=== PATIENT | male | born 1985 | race African-American/Black ===

== ENCOUNTER 2017-04-03 12:56 | Emergency (ER) | payer OTHER | END 2017-04-03 13:53 | disposition home or self-care (01) | LOC: ER 12:56 | DX: S93.402A Sprain of unspecified ligament of left ankle, initial encounter (principal); W22.8XXA Striking against or struck by other objects, initial encounter; Y93.89 Activity, other specified; Y92.89 Other specified places as the place of occurrence of the external cause; Y99.8 Other external cause status | CPT/HCPCS: 29515; 73630; 99284 ==

== ENCOUNTER 2017-08-12 09:00 | Emergency (ER) | payer SELFPAY, OTHER ==
[2017-08-12] MEDS: ONDANSETRON ODT 4 MG TAB.RAPDIS. PO (09:38)
[2017-08-12] MEDS: oxyCODONE/APAP 10/325 1 TAB TABLET PO (09:39)
[2017-08-12] MEDS: CLINDAMYCIN IM 600 MG/4 ML VIAL. IM (09:40)
== END 2017-08-12 10:00 | disposition home or self-care (01) ==
LOC: ER 10:00
DX: K02.9 Dental caries, unspecified (principal); F10.10 Alcohol abuse, uncomplicated
CPT/HCPCS: 96372; 99283; J3490; Q0162

== ENCOUNTER 2018-09-14 18:31 | Emergency (ER) | payer SELFPAY ==
[~2018-09-14] VITALS: Ht 170.2 cm; Wt 74.8 kg
[~2018-09-14 18:31] MED LIST: CLIN300C8 PO; IBUP-1060 PO; OXYC1TAB15 PO
[2018-09-14 18:46] VITALS: BP 149/108
[2018-09-14] MEDS ORDERED: BUPIVACAINE MPF 0.25% 10 ML VIAL. INFIL ONE (19:15)
--- NOTE | 2018-09-14 19:15 | PHYS DOC ---
Past Medical History Past Medical History: No Pertinent History (DIANNE RAVI APRN) Past Surgical History: No Surgical History (DIANNE RAVI APRN) Alcohol Use: Heavy Drug Use: None (DIANNE RAVI APRN) Departure Departure Impression: Primary Impression: Dental caries Disposition: 01 HOME, SELF-CARE Condition: GOOD Referrals: NO PCP (PCP) Patient Instructions: Dental Caries Additional Instructions: As we discussed, tried into to dentist tomorrow to have her tooth taken care of. Continue to take your Aleve, Tylenol, or other pain medicines you have at home for this discomfort. Take antibiotics as prescribed. Be careful when you're eating or drinking tonight as he may not have sensation on the right side of your mouth. Scripts Penicillin V Potassium (PENICILLIN V POTASSIUM) 500 Mg Tablet 1 TAB PO TID, #30 TAB Prov: DIANNE RAVI APRN 09/14/18 Adult General Chief Complaint Chief Complaint: DENTAL PROBLEM HPI HPI Patient is a 33 year old [male] who presents with [dental pain. Patient reports he hasn't pain in his teeth for several months, states that he had recently seen at [facility] and had been given some antibiotics and some Aleve for his dental pain, reports he has not had chest follow-up with dentist and as he does not have insurance. Patient reports today his pain continues, he only wants pain taking care of. Reports he had taken some of his Aleve and it did not seem to help. Patient reports he is concerned that maybe an infection in that tooth again and he is not sure. ] (DIANNE RAVI APRN) Review of Systems Review of Systems Constitutional: Denies fever or chills. [] Eyes: Denies change in visual acuity. [] HENT: Denies nasal congestion or sore throat. Complains of lower right molar discomfort[] Respiratory: Denies cough or shortness of breath. [] (DIANNE RAVI APRN) Current Medications Current Medications Current Medications Medications (Trade) Dose Ordered Sig/Avinash Start Time Stop Time Status Last Admin Dose Admin Bupivacaine HCl (Sensorcaine-Mpf 0.25%) 10 ml 1X ONCE 09/14/18 19:15 09/14/18 19:16 DC 09/14/18 19:15 10 ML (PATRICIA BILLS MD) Allergies Allergies Allergies Coded Allergies Type Severity Reaction Last Updated Verified No Known Drug Allergies 08/12/17 No (PATRICIA BILLS MD) Physical Exam Physical Exam Constitutional: Well developed, well nourished, no acute distress, non-toxic appearance. [] HENT: Normocephalic, atraumatic, bilateral external ears normal, oropharynx moist, no oral exudates, nose normal. Tooth 30 noted, and tooth 31 fractured, roots noted in place. Gen. decay to surrounding teeth. Minimal discoloration to gum medially of tooth #30. No masses. No fluctuance. No discharge noted. No abscess noted.[] Back: No tenderness, no CVA tenderness. [] Extremities: No tenderness, no cyanosis, no clubbing, ROM intact, no edema. [] Neurologic: Alert and oriented X 3, normal motor function, normal sensory function, no focal deficits noted. [] Psychologic: Affect normal, judgement normal, mood normal. [] (DIANNE RAVI APRN) Current Patient Data Vital Signs Vital Signs Date Time Temp Pulse Resp B/P (MAP) Pulse Ox O2 Delivery O2 Flow Rate FiO2 09/14/18 18:46 98.1 72 20 149/108 (122) 99 Room Air 98.1 (PATRICIA BILLS MD) EKG EKG [] (DIANNE RAVI APRN) Radiology/Procedures Radiology/Procedures [Using 27ga 1.5" needle, inject 3 ml 0.25% bupivicaine posteriorly to right lower mandible joint space through canal for dental block. No blood noted on aspiration. Well tolerated by patient with noted relief] (DIANNE RAVI APRN) Course & Med Decision Making Course & Med Decision Making Pertinent Labs and Imaging studies reviewed. (See chart for details) [Offered patient didn't want, in agreement with this. Discussed importance of follow up with dental provider, patient states that he is a mostly to pay nicholas to go see a dentist in his thinking care. We'll provide prescription for antibiotics, patient will take [id number] Aleve or his home pain medicines and follow up with dentist for primary care as needed.] (DIANNE RAVI APRN) Course & Med Decision Making Staff Physician Addendum: I was working in the ER during the course of this patient's visit. I was available for consultation as needed, but I was not directly involved in the care of this patient. (PATRICIA BILLS MD) Dragon Disclaimer Dragon Disclaimer This electronic medical record was generated, in whole or in part, using a voice recognition dictation system. (DIANNE RAVI APRN) DIANNE RAVI APRN Sep 14, 2018 19:15 PATRICIA BILLS MD Sep 15, 2018 21:46
[2018-09-14] MEDS ORDERED: PENI500T PO (19:56)
== END 2018-09-14 20:00 | disposition home or self-care (01) ==
LOC: ER 18:31
DX: K02.9 Dental caries, unspecified (principal); F10.20 Alcohol dependence, uncomplicated
CPT/HCPCS: 64400; 99284; J3490